=== PATIENT | male | born 1965 | race Caucasian/White ===

== ENCOUNTER → 2018-04-04 | Outpatient (CLI) | payer OTHER ==
--- NOTE | 2018-04-04 17:11 | PCVCIMAG ---
APPROVED REPORT Study performed: 04/04/2018 14:21:18 Exam: Stress Echocardiogram Indication: CAD , Dyspnea , Chest pressure, Patient Location: Echo lab Stress Nurse: Claire Gomes RN Room #: 2 Status: routine Ht: 6 ft 2 in HR: 68 bpm BP: 130/94 mmHg Medical History Medical History: CAD non obstructive, Hyperlipidemia Cardiac Risk Factors: HTN, Hyperlipidemia, FHX of CAD Previous Cardiac Procedures: none Pretest Chest Pain Characteristics: No chest pain Exercise History: Physically active Procedure The patient underwent an Exercise Stress Test using the Helga Protocol. Blood pressure, heart rate, and EKG were monitored. An Echocardiogram was performed by sleep lab technician in four stages in quad fashion. At peak stress, four selected images were obtained and placed side by side with resting images for comparison. Stress Test Details Stress Test: Exercise stress testing was performed using a Helga protocol. HR Resting HR: 68 bpmMax Heart Rate (APMHR): 170 bpm Max HR Achieved: 173 bpmTarget HR (85% APMHR): 144 bpm % of APMHR: 101 Recovery HR: 90 bpm HR response to stress: Normal HR response to stress BP Resting BP: 130/94 mmHg Max BP: 230/90 mmHg Recovery BP: 200/96 mmHg ECG Resting ECG: Sinus Rhythm Stress ECG: Sinus Rhythm ST Change: Upsloping ST depression, Non-ischemic Arrhythmia: APC's Recovery ECG: Sinus Rhythm Recovery ST Change: Non-ischemic Recovery Arrhythmia: None Clinical Reason for Termination: Maximal effort Stress Symptoms: none Exercise duration: 10 min 14 sec Highest Stage Achieved: Stage 4: 4.2 mph at 16% grade. Exercise capacity: 13.4 METs Overall Exercise Capacity for Age: Good Scale: Active Angina Score: None No complications. Stress ECG Conclusion The patient exercised according to the HELGA protocol for 10:14 mins; achieving a work level of 13.4 METS. The resting heart rate of 61 bpm klaus to a maximum heart rate of 173 bpm. This value represent 101% of the maximal, age-predicted heart rate. The resting blood pressure of 130/90 mmHg, klaus to a maximum blood pressure of 230/90 mmHg. The exercise test was stopped due to fatigue . Pre-Stress Echo The resting Echocardiogram showed normal left ventricular contractility with an estimated Ejection Fraction of about 55-60%. Normal wall motion in all segments on baseline images. Post-Stress Echo The stress Echocardiogram showed normal left ventricular contractility with an estimated Ejection Fraction of about 65-70%. Normal augmentation of wall motion in all segments on post stress images. Clinical No clinical or ECG evidence for ischemia. Conclusion Clinical Response: Non-ischemic Exercise Capacity: Superior Stress ECG Response: Non-ischemic Stress Echo Images: Non-ischemic No clinical, EKG or echocardiographic evidence for ischemia. Hypertensive response to exercise. No echocardiographic evidence for exercise induced ischemia. Normal stress echocardiogram with maximal exercise stress. <Conclusion> No clinical, EKG or echocardiographic evidence for ischemia. Hypertensive response to exercise. No echocardiographic evidence for exercise induced ischemia. Normal stress echocardiogram with maximal exercise stress.
== END | disposition home or self-care (01) ==
LOC: PCVCIMAG 15:31
PROVIDERS: ATTEND Internal Medicine Cardiovascular Disease
DX: R06.09 Other forms of dyspnea (principal); R07.89 Other chest pain
CPT/HCPCS: 93325; 93351